=== PATIENT | female | born 1985 | race African-American/Black ===

== ENCOUNTER 2017-02-02 02:18 | Emergency (ER) | payer MEDICAID, OTHER ==
[~2017-02-02] VITALS: Ht 170.2 cm; Wt 72.6 kg
--- NOTE | 2017-02-02 02:48 | NUR ---
DR. CHAPPELL AT BEDSIDE FOR MSE.
[2017-02-02] MEDS ORDERED: DOCUSATE SODIUM 100 MG/10 ML LIQUID UDC XX ONE (03:15)
[2017-02-02] MEDS ORDERED: DOCUSATE SODIUM 100 MG CAPSULE PO ONE (03:15)
--- NOTE | 2017-02-02 03:20 | NUR ---
RIGHT EAR WASH DONE, PATIENT TOLEARTED WELL.
--- NOTE | 2017-02-02 06:30 | NUR ---
PATIENT WILL BE DC'D AFTER SEEN BY MANAGER WILLOW.
--- NOTE | 2017-02-02 07:05 | NUR ---
PT IS RESTING W/ BOTH EYES CLOSED, NAD NOTED.
--- NOTE | 2017-02-02 07:50 | NUR ---
BREAKFAST PROVIDED, PT DENIES PAIN AND DISCOMFORT. PT REQUEST TO SEE JANIS ABAD.
--- NOTE | 2017-02-02 08:35 | NUR ---
NOTIFY [facility]IATION MEDICINE SPECIALIST FOR CONSULT PER PT'S REQUEST.
--- NOTE | 2017-02-02 08:52 | NUR ---
ELECTRICAL ENGINEERING DESIGNER ALBERTOH AT THE BEDSIDE.
[2017-02-02 10:31] VITALS: BP 138/92
--- NOTE | 2017-02-02 11:10 | NUR ---
Patient discharged in stable conditon. Written and verbal after care instructions given. Patient verbalizes understanding of instructions. PT LEFT ER W/ STEADY GAIT.
--- NOTE | 2017-02-02 11:13 | NUR ---
SW consult requested. YOUSUF arrived to ED and met with MO Downey to discuss patient's case. SW then met with patient in her assigned ED room. Patient was receptive to meeting with SW. Patient is a 31 year old female who had come in to the ED in the early hours of the morning due to ear pain (see physician's notes). Patient is oriented x 4, cooperative with SW, maintained appropriate eye contact, and mood, behavior, affect, and thought process were all WNL. Patient's hygiene and grooming were fair. Patient reported no hx of substance abuse, no use of any prescription drugs except OTC pain meds, no SI/HI. Patient stated that she had requested to speak with a SW because she wanted help with housing. Patient reported psychosocial problems in the areas of primary support group, housing, and occupational and economics. Patient reported that she has been living in her car since July 2016 (prior to then she was temporarily living with her ex-). Patient reported not having any family or close friends in [place], just new friends and acquaintances. Patient has been working for [employer], although it has not been consistent and she has been having problems with receiving payment from [employer]. Patient has also been working part-time jobs in delivery and as a retail stylist, but these jobs have also been inconsistent. Patient is currently in [employer] and [employer] (food stamps), but is hoping to find a source for more permanent income. SW assisted patient in exploring the type of resources she is looking for. Patient requested information on housing and jobs. YOUSUF provided patient with the following housing resources: 1) [facility]: [address] [facility], 2) [facility]: [address], [place], 3) [place] [facility]: [address], [place], 4) [employer]: [address], SW also discussed the option of looking for shared housing, roommates. Patient stated that she has been looking in [employer] and in the classified ads, but has not yet found any possible options yet. However, patient stated that she will continue to look. YOUSUF also discussed with patient and provided the following additional resources, which patient was receptive to: 1) [facility] [address] [place] [phone] 2) [employer] and [employer], [address] [facility], 3) [employer], [address] [facility], 4) Homeless Resource Directory from the [facility] which includes a list of places with days and times throughout the week that individuals can go to receive hot meals, sack lunches, showers, and case management services. Patient expressed being thankful and content with the resources that SW provided. A copy of all the resources provided to patient was filed in patient's ED chart. YOUSUF informed MO Downey that SW consult was complete.
== END 2017-02-02 11:16 | disposition home or self-care (01) ==
LOC: ER 02:22
DX: H61.21 Impacted cerumen, right ear (principal); G89.29 Other chronic pain; Z59.0 Homelessness
CPT/HCPCS: A4663

== ENCOUNTER 2017-03-27 05:26 | Emergency (ER) | payer MEDICAID, OTHER ==
[~2017-03-27] VITALS: Ht 170.2 cm; Wt 64.4 kg
--- NOTE | 2017-03-27 06:09 | NUR ---
Pt presents to ED w/ c/o bilateral foot pain and skin tears x1 week following pedicure.
--- NOTE | 2017-03-27 06:35 | NUR ---
Dr. Hall at bedside for MSE
[2017-03-27] MEDS ORDERED: PROMETHAZINE HCL 25 MG/1 ML VIAL IM ONE (06:45)
[2017-03-27] MEDS ORDERED: HYDROMORPHONE 1 MG/1 ML DISP.SYRIN IM ONE (06:45)
[2017-03-27] MEDS ORDERED: HYDROMORPHONE 1 MG/1 ML DISP.SYRIN ONE (07:00)
[2017-03-27] MEDS ORDERED: PROMETHAZINE HCL 25 MG/1 ML VIAL ONE (07:00)
[2017-03-27] MEDS ORDERED: NEOMY/BACITRA/POLYMYXIN B OINT UD PACKET TP ONE ×2 (07:00→07:18)
--- NOTE | 2017-03-27 07:23 | NUR ---
Patient discharged to home in stable conditon. Written and verbal after care instructions given. Patient verbalizes understanding of instructions.
[2017-03-27 07:26] VITALS: BP 127/79
== END 2017-03-27 07:29 | disposition home or self-care (01) ==
LOC: ER 05:30
DX: G89.29 Other chronic pain (principal); L08.89 Other specified local infections of the skin and subcutaneous tissue; M79.672 Pain in left foot; Z59.0 Homelessness
CPT/HCPCS: 96372 ×2; 99284; A4663; J1170; J2550

== ENCOUNTER 2017-06-13 03:37 | Emergency (ER) | payer OTHER ==
[~2017-06-13] VITALS: Ht 170.2 cm; Wt 61.2 kg
--- NOTE | 2017-06-13 03:40 | NUR ---
patient walked into ER c/o right ear itching and lost of hhearing x1 week. Patient states ear wax as build up on right ear. Denies N/V,SOB
--- NOTE | 2017-06-13 04:35 | NUR ---
Patient discharged to home in stable conditon. Written and verbal after care instructions given. Patient verbalizes understanding of instructions. Walked out of ER with no distress noted
[2017-06-13 04:36] VITALS: BP 120/87
== END 2017-06-13 04:36 | disposition home or self-care (01) ==
LOC: ER 03:39
DX: H61.21 Impacted cerumen, right ear (principal); G89.29 Other chronic pain; Z59.0 Homelessness; Z91.041 Radiographic dye allergy status
CPT/HCPCS: A4217; A4663

== ENCOUNTER 2017-07-09 05:07 | Emergency (ER) | payer OTHER ==
[~2017-07-09] VITALS: Ht 170.2 cm; Wt 73.0 kg
--- NOTE | 2017-07-09 05:40 | NUR ---
DR LUCIEN ZELAYA MD AT BEDSIDE FOR MSE.
[2017-07-09 06:13] LABS: *BILIRUBIN,URIN NEGATIVE (NEGATIVE); *BLOOD, URINE NEGATIVE (NEGATIVE); *CLARITY,URINE CLEAR (CLEAR); *COLOR,URINE YELLOW (YELLOW); *KETONES,URINE NEGATIVE (NEGATIVE); *PROTEIN,URINE TRACE (NEGATIVE); *UROBILINOGEN,URINE 0.2 E.U./dl (NORMAL); LEUKOCYTE ESTERASE ,URINE NEGATIVE (NEGATIVE); NITRITE, URINE NEGATIVE (NEGATIVE); PH,URINE 8.5 (5.0-8.0); UGLUCOSE NEGATIVE (NEGATIVE)
[2017-07-09 06:15] LABS: *URINE HCG, QUAL NEGATIVE (NEGATIVE)
[2017-07-09 06:17] LABS: BACTERIA,URINE NONE SEEN /HPF (NONE SEEN); MUCUS,URINE FEW /LPF (0-FEW); RBC,URINE 0-3 /HPF (0-3); SQUAMOUS EPITHELIAL CELL,UR FEW /HPF (NONE SEEN); WBC,URINE 0-3 /HPF (0-3)
--- NOTE | 2017-07-09 06:32 | NUR ---
Patient discharged to home in stable conditon. Written and verbal after care instructions given. Patient verbalizes understanding of instructions. No acute distress noted. Pt took all personal belongings.
[2017-07-09 06:47] VITALS: BP 119/84
== END 2017-07-09 06:48 | disposition home or self-care (01) ==
LOC: ER 05:11
DX: R30.0 Dysuria (principal); G89.4 Chronic pain syndrome; Z91.041 Radiographic dye allergy status; Z59.0 Homelessness
CPT/HCPCS: 84703; A4663

== ENCOUNTER 2018-02-12 01:29 | Emergency (ER) | payer OTHER ==
[~2018-02-12] VITALS: Ht 170.2 cm; Wt 69.9 kg
== END 2018-02-12 02:55 | disposition home or self-care (01) ==
LOC: ER 01:31
DX: H61.23 Impacted cerumen, bilateral (principal); Z88.8 Allergy status to other drugs, medicaments and biological substances; Z59.0 Homelessness